=== PATIENT | male | born 1940 | race Caucasian/White ===

== ENCOUNTER 2017-11-14 18:40 | Observation (INO) | payer MEDICARE, OTHER ==
[2017-11-14] MEDS ORDERED: Ondansetron HCl/PF 4 MG/2 ML Vial ONE (19:31)
[2017-11-14 19:55] LABS: ALT (SGPT) 14 U/L (8-55); AST (SGOT) 20 U/L (5-34); Albumin 3.9 g/dL (3.4-4.8); Alkaline Phosphatase 48 U/L (40-150); Anion Gap 19 mmol/L (10-20); BUN (Urea Nitrogen) 27 mg/dL (8.4-25.7); Bilirubin, Total 0.9 mg/dL (0.2-1.2); CK (CPK) 270 U/L (30-200); Calc. Creatinine Clearance 0 mL/min (70-130); Calcium 9.1 mg/dL (7.8-10.44); Carbon Dioxide 23 mmol/L (23-31); Chloride 99 mmol/L (98-107); Estimated GFR-MDRD 43; Globulin 2.3 g/dL (2.4-3.5); Glucose 126 mg/dL (83-110); Lipase 8 U/L (8-78); Potassium 3.7 mmol/L (3.5-5.1); Protein, Total 6.2 g/dL (5.8-8.1); Sodium 137 mmol/L (136-145)
[2017-11-14 19:56] LABS: Band 47 % (5-11); Hemoglobin 14.7 g/dL (14.0-18.0); Lymphocytes 6 % (21-51); MDiff Complete? YES; Mean Corpuscular Hemoglobin 32.1 pg (27.0-31.0); Mean Corpuscular Volume 91.7 fl (80.0-94.0); Mean Platelet Volume 8.4 fL (7.4-10.4); Monocytes 7 % (0-10); Neutrophil 38 % (42-75); PLT Morphology Comment Appears Decreased; Platelet Count 131 thou/uL (130-400); RBC Distribution Width 11.1 % (11.5-14.5); Reactive Lymphocytes 2 % (0-10); Red Blood Cell (RBC) Count 4.58 mill/uL (4.70-6.10); Reflex for Review?? YES; White Blood Cell (WBC) Count 5.9 thou/uL (4.8-10.8)
[2017-11-14 19:58] LABS: CKMB 0.9 ng/mL (0-6.6); Troponin I Less than 0.010 ng/mL (< 0.028)
--- NOTE | 2017-11-14 20:39 | RAD ---
RADIOGRAPH CHEST 1 VIEW: HISTORY: 76-year-old male with nausea. FINDINGS: There are no air space densities, pulmonary edema, pneumothorax, or cardiomegaly. The lateral costop hrenic angles are sharp. IMPRESSION: No acute cardiopulmonary findings. shamir POS: SYBIL
[2017-11-14] MEDS ORDERED: metroNIDAZOLE 500 MG/100 ML BAG ONE (20:57)
--- NOTE | 2017-11-14 21:33 | CT ---
CT ABDOMEN NONCONTRAST CT PELVIS NONCONTRAST: (urolithiasis protocol) DATE: 11-14-17 TIME: 7:42 P.M. HISTORY: 76-year-old male with nausea, diarrhea, fever, and generalized malice. COMPARISON: 08-16-14 CT with contrast. TECHNIQUE: IV injection of iodinated contrast media: none Oral contrast media: none FINDINGS: Other than for urolithiasis, the lack of IV and oral contrast limits the evaluation. Pulmonary densities at the bases of bilateral lower lobes are somewhat worse than in the 2014 study. The tiny focal, less than 1 cm hypodense lesion in the left lobe of the liver is stable and therefore benign. Again noted are the multiple fluid-filled structures in the sinuses of bilateral kidneys. Th is appearance is unchanged, and either represents multiple parapelvic renal cysts or mild bilateral h ydronephrosis. Given the stability between the two studies, the former is slightly favored. There are no renal, ureteral, or bladder calculi. There is a new finding of a moderately large volume of liqui d stool in the sigmoid colon and especially in the rectum, distending the rectum. Again noted are the multiple diverticula in the sigmoid colon. Previously, there was focal moderate to severe diverticul itis involving the lower portions of the descending colon. Currently, there is mild fat stranding and mild mural thickening of the lower portion descending colon and the junction between the descending colon and sigmoid colon. No abdominal aortic aneurysm. No gross abnormality of the adrenals, pancreas , or spleen. No small bowel dilation. No ascites or pneumoperitoneum. The appendix is normal. IMPRESSION: 1. No urolithiasis. 2. Liquid stool in the colon: impending diarrhea. 3. Diverticulosis of sigmoid colon and lower descending colon. 4. Questionable mild acute diverticulitis at lower descending colon. 5. Bibasilar pulmonary opacities. See report of chest CTA later today. 6. Multiple bilateral parapelvic renal cysts vs mild bilateral hydronephrosis due to mild bilateral U PJ obstructions. The former is favored. Either an IVP (intravenous urogram) or CT with contrast wit h delayed scanning during the excretory phase, would provide definitive diagnosis. AVA Bateman POS: SYBIL
--- NOTE | 2017-11-14 22:29 | CT ---
CTA THORAX WITH CONTRAST: (Computed Tomographic Angiography, chest(noncoronary) with contrast material, and image postprocessin g) (PE protocol) Date: 11-14-17 HISTORY: 76-year-old male with dyspnea, nausea, and fever. TECHNIQUE: IV injection of iodinated contrast: Isovue 370 Scan acquisition timing attempted to coincide with iodinated contrast bolus reaching maximal density in pulmonary arteries. 3D MIP reconstructions. Comparison: No previous CTs of the chest. There is a prior CT of the abdomen of 08-16-14. FINDINGS: As demonstrated on the previous abdominal CT, there are plate-like densities at the bases of bilatera l lower lobes, consistent with either recurrent subsegmental atelectasis or pulmonary scarring. This is moderately worse on the current CT compared to the previous, with irregularly shaped transversely wide but craniocaudally narrow airspace densities or consolidations, with mild air bronchograms. Ther e is no pleural effusion or pneumothorax. No thoracic aortic aneurysm or dissection. No mediastinal o r hilar lymphadenopathy. Trachea and major bronchi are patent and clear. No cardiomegaly. No evidence of pulmonary thromboembolism. IMPRESSION: 1. No evidence of pulmonary thromboembolism. 2. Pulmonary densities at the basis of the bilateral lower lobes which are nonspecific. Uncertain whe ther entirely chronic or a combination of chronic and acute; uncertain whether atelectasis or mild pn eumonia. Atelectasis is slightly favored but follow up is recommended. shamir POS: SYBIL
[2017-11-14 23:10] LABS: Troponin I 0.019 ng/mL (< 0.028)
[2017-11-14 23:11] LABS: Lactic Acid 1.4 mmol/L (0.5-2.2)
[2017-11-14] MEDS ORDERED: Ondansetron HCl/PF 4 MG/2 ML Vial IVP PRN (23:28)
[2017-11-14] MEDS ORDERED: Ondansetron ODT 4 MG TAB SL PRN (23:28)
[2017-11-14] MEDS ORDERED: Acetaminophen 325 MG TAB PO PRN (23:28)
[2017-11-14] MEDS: Sodium Chloride 0.9% 1,000 ML IV SCH (23:56)
[2017-11-15 01:57] LABS: Troponin I 0.021 ng/mL (< 0.028)
[2017-11-15 02:53] VITALS: BMI 26.6
[2017-11-15] MEDS: Sodium Chloride 0.9% 1,000 ML IV SCH (04:58)
[2017-11-15 05:53] LABS: #Lymphocytes 0.6 thou/uL (1.20-3.40); #Monocytes 0.4 thou/uL (0.11-0.59); #Neutrophils 3.8 thou/uL (1.40-6.50); %Basophils 0.9 % (0.0-1.0); %Eosinophils 0.1 % (0.0-10.0); %Lymphocytes 11.7 % (21.0-51.0); %Monocytes 8.1 % (0.0-10.0); %Neutrophils 79.2 % (42.0-75.0); Hemoglobin 14.8 g/dL (14.0-18.0); Mean Corpuscular HGB CONC 33.2 g/dL (32.0-36.0); Mean Corpuscular Hemoglobin 32.1 pg (27.0-31.0); Mean Corpuscular Volume 96.6 fl (80.0-94.0); Mean Platelet Volume 7.4 fL (7.4-10.4); Platelet Count 132 thou/uL (130-400); RBC Distribution Width 11.6 % (11.5-14.5); Red Blood Cell (RBC) Count 4.62 mill/uL (4.70-6.10); White Blood Cell (WBC) Count 4.8 thou/uL (4.8-10.8)
[2017-11-15] MEDS ORDERED: metroNIDAZOLE 500 MG in Premix Bag 1 BAG IVPB SCH (06:00)
[2017-11-15 06:10] LABS: Anion Gap 12 mmol/L (10-20); BUN (Urea Nitrogen) 21 mg/dL (8.4-25.7); Calc. Creatinine Clearance 56 mL/min (70-130); Carbon Dioxide 26 mmol/L (23-31); Chloride 101 mmol/L (98-107); Estimated GFR-MDRD 47; Glucose 96 mg/dL (83-110); Potassium 3.6 mmol/L (3.5-5.1); Sodium 135 mmol/L (136-145)
[2017-11-15] MEDS: Enoxaparin Sodium 30 MG/0.3 ML SYRINGE SC SCH (07:54)
[2017-11-15] MEDS: Metamucil PACK PO SCH (07:55)
--- NOTE | 2017-11-15 08:15 | HP ---
PRIMARY CARE PHYSICIAN: None. CHIEF COMPLAINT: Diarrhea with fever. HISTORY OF PRESENT ILLNESS: This is a 76-year-old male with past medical history notable for hyperli pidemia and hypertension who presents with a chief complaint of diarrhea and fever over the last 2-3 days. The patient states that he was recently on a group trip to [place] and noted that approximat lucita 10 individuals out of the group of 30 also had similar symptoms. The patient states that his nila mmate for the trip 3 days had the same exact symptoms of diarrhea, fever, abdominal pain and the corrie ent himself had similar symptoms occur while on the flight back 3 days after his roommate started hav ing the same symptoms. At the time of my evaluation, the patient states his abdominal pain is significantly improved. He sa id he is still having intermittent diarrhea, but overall feels somewhat better. He still has no appe tite. Denies any nausea. REVIEW OF SYSTEMS: As per HPI. CONSTITUTIONAL: No significant weight loss or gain over the last 2-3 weeks, fevers as above subjecti ve at home, denies any chills. HEENT: Denies any new headaches, vision changes, lightheadedness. CARDIOVASCULAR: Denies any chest pressure or chest pain accompanying these episodes. RESPIRATORY: Denies any new shortness of breath, cough, sinus congestion or postnasal drip. GASTROINTESTINAL: Please see the discussion above. MUSCULOSKELETAL: Denies any myalgias or arthralgias. The remainder of review of systems otherwise negative. PAST MEDICAL HISTORY: As per HPI. 1. Hypertension. 2. Hyperlipidemia. 3. Diverticulosis. 4. History of "prostate surgery." HOME MEDICATIONS: Please see the EMR for full details. His list includes rosuvastatin 5 mg p.o. at bedtime, multivitamins 1 cap p.o. at bedtime, aspirin 81 mg p.o. at bedtime and amlodipine 5 mg p.o. at bedtime. ALLERGIES: NAPROXEN. FAMILY HISTORY: The patient denies any known family history of recurrent GI illness. SOCIAL HISTORY: Denies any alcohol, tobacco or illicit drug use. Acute sick contact as described ab ove in the HPI. The patient states he wishes to be full code. He does not designate a surrogate [facility] decision maker at this point in time if he is unable to make his own medical decisions. PHYSICAL EXAMINATION: VITAL SIGNS: Temperature 97.9, pulse of 104, respirations 20, satting 97% on room air, blood pressur e 131/69. GENERAL: The patient is awake, alert, appropriate, in no acute distress, lying in the hospital bed. HEENT: Slightly dry mucous membranes. Equal ocular motions are intact. Normocephalic, atraumatic. CARDIOVASCULAR: S1, S2. No murmurs, rubs or gallops. Pulses 2+ bilateral upper extremities, no pit ting pedal edema. RESPIRATORY: Reasonable air movement. No wheezes, rales or rhonchi. Lungs are clear to auscultatio n bilaterally. ABDOMEN: Positive bowel sounds, soft, slightly tender to palpation throughout. MUSCULOSKELETAL: Moving all 4 extremities. Independently able to self reposition in the bed without difficulty or assistance. LABORATORY DATA AND IMAGING: WBC 5.9, hemoglobin 14.7, hematocrit 42.0, platelets 131. D-dimer 0.7 8, sodium 137, potassium 3.7, chloride 99, bicarbonate 23, BUN 27, creatinine 1.59, glucose 126, lact ic acid 2.6. Subsequent lactic acid 1.4, calcium 9.1, total bilirubin 0.9, AST 20, ALT 14, alkaline phosphatase 48. Creatinine kinase 270. Troponin less than 0.01 followed by 0.019 followed by 0.021. BNP 77.5, total protein 6.2, albumin 3.9, lipase 8. 11/14/20173 - Abdomen and pelvis CT results. Impression: "No ureterolithiasis with no evidence of h igh grade obstructive uropathy. Liquid stool in the colon, impending diarrhea. Diverticulosis of si gmoid colon and low descending colon. Mild, acute diverticulitis low descending colon". 11/14/2017 - Chest and thorax CTA. Impression: "No evidence of pulmonary thromboembolism. Pulmona ry densities at the bases of the lower lobes which are nonspecific, uncertain whether it is either ch ronic or a combination acute, or whether atelectasis or mild pneumonia. Atelectasis is slightly favo red, but followup was recommended". 11/14/2017 - Chest x-ray- Impression: No acute cardiopulmonary findings. ASSESSMENT AND PLAN: This is a 76-year-old male who presents with a chief complaint of diarrhea and fever. 1. Diarrhea and fever with given history as per above. Seems to suggest an infectious etiology. Th e patient is currently placed on empiric ciprofloxacin and metronidazole. Stool samples have been se nt for culture. The patient is placed on enteric precautions. The patient is currently on IV fluid resuscitation and close monitoring of his symptoms. 2. History of hypertension, stable. 3. History of hyperlipidemia, stable. 4. Diet: N.p.o. The patient is allowed to have a clear liquid diet, advance as tolerated once his abdominal pain is resolved or tolerable. 5. Activity: Out of bed as tolerated. 6. Deep venous thrombosis prophylaxis. Lovenox. Thank you for asking me care for the patient. Admit the patient to observation status. With questio ns or concerns, please contact me at [facility].
[2017-11-15] MEDS: Famotidine 40 MG/4 ML VIAL SLOW IVP SCH (11:40)
[2017-11-15] MEDS ORDERED: Acetaminophen 500 MG TAB PO PRN (13:56)
--- NOTE | 2017-11-15 18:23 | PDOC.PN ---
- Subjective Encounter Start Date: 11/15/17 Encounter Start Time: 18:00 Subjective: f/u for gastroenteritis, CHRISTINE, dehydration. Overall feels better. Still -: with fever and diarrhea. - Objective Resuscitation Status: Resuscitation Status FULL:Full Resuscitation MAR Reviewed: Yes Vital Signs & Weight: Vital Signs (12 hours) Temp Pulse Resp BP Pulse Ox 11/15/17 14:42 100.1 F H 92 15 113/64 91 L 11/15/17 11:30 99.6 F 88 16 130/69 90 L 11/15/17 07:30 100.7 F H 101 H 18 11/15/17 07:18 100.7 F H 101 H 18 134/69 Weight Weight 196 lb 12.8 oz I&O: 11/14/17 11/15/17 11/16/17 06:59 06:59 06:59 Intake Total 2370 Balance 2370 Result Diagrams: 11/15/17 04:45 11/15/17 04:45 Additional Labs: Microbiology 11/14/17 23:50 Stool - Liquid Campylobacter Antigen Assay - Final 11/14/17 23:50 Stool - Liquid Shiga Toxin Test - Final Laboratory Tests 11/14/17 11/14/17 11/14/17 19:25 19:25 19:25 Neutrophils % Neutrophils % (Manual) 38 L Band Neuts % (Manual) 47 H Creatinine 1.59 H Lactic Acid 2.6 H 11/14/17 11/15/17 22:35 04:45 Neutrophils % 79.2 H Neutrophils % (Manual) Band Neuts % (Manual) Creatinine Lactic Acid 1.4 Radiology Reviewed by me: Yes (CT abd/pel - non-specific diverticulosis, renal cysts) EKG Reviewed by me: Yes (Tele - Sinus tachycardia in low 100's) Phys Exam - Physical Examination Constitutional: NAD HEENT: PERRLA, oral pharynx no lesions Neck: no JVD, supple Respiratory: no wheezing Cardiovascular: RRR Gastrointestinal: soft, non-tender, no distention, positive bowel sounds Musculoskeletal: no edema, pulses present Neurological: normal sensation, moves all 4 limbs Psychiatric: A&O x 3 Skin: normal turgor, cap refill <2 seconds Dx/Plan (1) Gastroenteritis Code(s): K52.9 - NONINFECTIVE GASTROENTERITIS AND COLITIS, UNSPECIFIED Status : Acute Comment: Likely Traveler's diarrhea, continue Cipro and Flagyl, add Zithromax 500mg po daily, continue IVF's, antiemetics prn (2) CHRISTINE (acute kidney injury) Code(s): N17.9 - ACUTE KIDNEY FAILURE, UNSPECIFIED Status: Acute Comment: Improved, continue IVF's, avoid nephrotoxic meds (3) Dehydration Code(s): E86.0 - DEHYDRATION Status: Acute Comment: Improved, continue IVF's , encourage increased po free H2O (4) Fever Code(s): R50.9 - FEVER, UNSPECIFIED Status: Acute Comment: Persistent, see # 1 (5) HTN (hypertension) Code(s): I10 - ESSENTIAL (PRIMARY) HYPERTENSION Status: Chronic Qualifiers: Hypertension type: essential hypertension Qualified Code(s): I10 - Essential (primary) hypertension Comment: Resume home Norvasc, monitor serially - Plan plan discussed w/ family, continue antibiotics, DVT proph w/SCDs Stable overall -: Continue Cipro and Flagyl IV -: Add Zithromax 500mg daily for Traveler's diarrhea -: Antiemetics prn -: AM lab: BMP, CBC * Final stool studies pending * Likely home in am
[2017-11-15] MEDS ORDERED: Azithromycin 250 MG TAB PO SCH (18:45)
[2017-11-15] MEDS ORDERED: Rosuvastatin 5 MG TAB PO SCH (21:00)
[2017-11-15] MEDS ORDERED: Aspirin 81 mg Enteric Coated Tablet PO SCH (21:00)
[2017-11-15] MEDS ORDERED: Amlodipine 5 MG TAB PO SCH (21:00)
[2017-11-16 04:15] VITALS: TEMP 99.3
[2017-11-16 04:56] LABS: Anion Gap 7 mmol/L (10-20); BUN (Urea Nitrogen) 18 mg/dL (8.4-25.7); Calc. Creatinine Clearance 61 mL/min (70-130); Calcium 8.4 mg/dL (7.8-10.44); Carbon Dioxide 31 mmol/L (23-31); Chloride 106 mmol/L (98-107); Estimated GFR-MDRD 52; Glucose 92 mg/dL (83-110); Potassium 3.7 mmol/L (3.5-5.1); Sodium 140 mmol/L (136-145)
[2017-11-16 05:00] LABS: #Lymphocytes 0.4 thou/uL (1.20-3.40); #Monocytes 0.3 thou/uL (0.11-0.59); #Neutrophils 2.6 thou/uL (1.40-6.50); %Basophils 0.3 % (0.0-1.0); %Eosinophils 0.5 % (0.0-10.0); %Lymphocytes 12.6 % (21.0-51.0); %Monocytes 7.7 % (0.0-10.0); %Neutrophils 78.8 % (42.0-75.0); Hemoglobin 14.1 g/dL (14.0-18.0); Mean Corpuscular HGB CONC 34.3 g/dL (32.0-36.0); Mean Corpuscular Hemoglobin 33.9 pg (27.0-31.0); Mean Platelet Volume 7.5 fL (7.4-10.4); Platelet Count 112 thou/uL (130-400); RBC Distribution Width 11.7 % (11.5-14.5); Red Blood Cell (RBC) Count 4.14 mill/uL (4.70-6.10); White Blood Cell (WBC) Count 3.3 thou/uL (4.8-10.8)
[2017-11-16 08:21] VITALS: BP 128/75
[2017-11-16] MEDS: Enoxaparin Sodium 30 MG/0.3 ML SYRINGE SC SCH (08:39)
[2017-11-16] MEDS ORDERED: guaiFENesin ER 600 MG TAB PO SCH (09:00)
[2017-11-16] MEDS ORDERED: Azithromycin 250 MG TAB PO SCH (09:00)
[2017-11-16] MEDS: Famotidine 40 MG/4 ML VIAL SLOW IVP SCH (09:16)
[2017-11-16] MEDS: Metamucil PACK PO SCH (09:16)
--- NOTE | 2017-11-16 11:46 | DIS ---
DATE OF ADMISSION: 11/14/2017 DATE OF DISCHARGE: 11/16/2017 DISCHARGE DIAGNOSES: 1. Gastroenteritis/traveler's diarrhea, improved. 2. Dehydration, resolved. 3. Acute kidney injury secondarily to #1, improved. 4. Question of chronic kidney disease stage 3. 5. Lactic acidosis, mild, resolved. 6. Hypertension, stable. CONSULTATIONS: None. PERTINENT LAB AND X-RAY FINDINGS: Creatinine ranged between 1.33 to 1.59 with estimated GFR ranging between 43 to 52. Lactic acid level ranged between 1.4 to 2.6. LFTs within normal limits. Lipase 8 . CBC showed a white blood cell count ranging between 3.3 to 5.9, hemoglobin 14. Stool culture date d 11/14/2017 showed moderate normal enteric may. Campylobacter antigen negative. Shigella toxin 1 and 2 negative 11/14/2017. C. difficile antigen and toxin dated 11/15/[address] of the abd omen and pelvis dated 11/14/2017 showed diverticulosis of the sigmoid and lower descending colon. Qu estion of mild acute diverticulitis of the lower descending colon. Bibasilar atelectasis of the lowe r lung msua. Bilateral renal cysts. Portable chest x-ray dated 11/14/2017 showed no acute cardiop ulmonary process. CT angiogram of the chest dated 11/14/2017 showed no evidence for pulmonary embolu s. HOSPITAL COURSE: The patient was placed in observation status after initially presenting with diarrh ea, fever, and gastroenteritis after a recent international trip. The patient was placed on empiric IV ciprofloxacin and Flagyl with stool studies essentially unrevealing. The patient was given IV flu ids after acute kidney injury was noted with elevated creatinine above baseline values. The patient was given antiemetics, antipyretics and monitored for approximately 48 hours. The patient's overall diarrhea had resolved by the time of discharge and the patient was symptomatically improved, able to tolerate regular oral intake. Overall, the patient remained clinically stable through the hospital [facility] and on the day of discharge is noted with stable vital signs. Lungs are clear to auscultation bilaterally with cardiovascular exam showing normal S1, S2. Abdominal exam is unremarkable. The pat ient ready for discharge 11/16/2017. DISCHARGE MEDICATIONS: 1. Flagyl 250 mg p.o. t.i.d. x5 days. 2. Zithromax 500 mg p.o. daily x5 days. 3. Norvasc 5 mg p.o. at bedtime. 4. Enteric-coated aspirin 81 mg p.o. at bedtime. 5. Multivitamin 1 tablet p.o. daily. 6. Crestor 5 mg p.o. at bedtime. 7. Coenzyme Q10 of 100 mg p.o. at bedtime. FOLLOWUP: The patient may follow up with his primary care provider, Dr. Chaka Jenkins within 7 days o f discharge. CONDITION ON DISCHARGE: Stable. ACTIVITY: Ad álvaro. DIET: Regular. CODE STATUS: Full. DISPOSITION: Home on 11/16/2017.
[2017-11-18 23:09] LABS: Norovirus GI Negative (Negative); Norovirus GII Negative (Negative)
== END 2017-11-16 10:40 | disposition home or self-care (01) ==
LOC: SCSER 18:40 → 2SW 22:16
PROVIDERS: ADMIT Internal Medicine Infectious Disease; ATTEND Internal Medicine Infectious Disease
DX: A09 Infectious gastroenteritis and colitis, unspecified (principal); E86.0 Dehydration; N17.9 Acute kidney failure, unspecified; E87.2 Acidosis; I10 Essential (primary) hypertension; E78.5 Hyperlipidemia, unspecified; Z79.82 Long term (current) use of aspirin; Z79.899 Other long term (current) drug therapy; Z88.6 Allergy status to analgesic agent; Z98.890 Other specified postprocedural states
CPT/HCPCS: 71045; 71275; 74176; 80048 ×2; 80053; 82550; 82553; 83605; 83690; 83880; 84484 ×3; 85025 ×3; 85379; 87045; 87046; 87077; 87324; 87449 ×2; 87798 ×2; 87899 ×2; 93005; 96361 ×2; 96365; 96366; 96367 ×2; 96372 ×2; 96375 ×2; 99285; G0378; 36415; 85060; 87186; J0744; J1650; J1956; J2405; Q0162

== ENCOUNTER 2020-12-25 05:59 | Day surgery (SDC) | payer MEDICARE ==
[2020-12-24 12:31] VITALS: BMI 26.9
[2020-12-25] MEDS ORDERED: Acetaminophen 500 MG TAB ONE (06:12)
[2020-12-25] MEDS ORDERED: Ketorolac Tromethamine 30 MG/ML VIAL ONE (06:13)
[2020-12-25] MEDS ORDERED: Fentanyl 100 MCG/2 ML VIAL ONE (06:26)
[2020-12-25] MEDS ORDERED: Bupivacaine 0.25% HCL 30 ML VIAL ONE (06:35)
[2020-12-25] MEDS ORDERED: Lidocaine 1% w/Epinephrine 1:100K 20 ML VIAL ONE (06:35)
[2020-12-25] MEDS ORDERED: PHENYLEPHRINE-NS 100 MCG/ML 10 ML SYRINGE ONE (07:34)
[2020-12-25] MEDS ORDERED: Ondansetron PF 4 MG/2 ML Vial ONE (07:34)
[2020-12-25] MEDS ORDERED: Glycopyrrolate 0.2 MG/ML 5 ML SYRINGE ONE (07:34)
[2020-12-25] MEDS ORDERED: Rocuronium Bromide 10 MG/ML (10ML VIAL) ONE (07:34)
[2020-12-25] MEDS ORDERED: Dexamethasone 20 MG/5 ML VIAL ONE (07:34)
[2020-12-25] MEDS ORDERED: PROPOFOL 200 MG/20 ML VIAL ONE (07:34)
== END 2020-12-25 11:30 | disposition home or self-care (01) ==
LOC: SDC 05:59
PROVIDERS: ATTEND Specialist
PROC: 0YU54JZ Supplement Right Inguinal Region with Synthetic Substitute, Percutaneous Endoscopic Approach (ICD-10-PCS; principal; 2020-12-25)
DX: K40.90 Unilateral inguinal hernia, without obstruction or gangrene, not specified as recurrent (principal); K42.9 Umbilical hernia without obstruction or gangrene; I10 Essential (primary) hypertension; E78.5 Hyperlipidemia, unspecified; Z79.82 Long term (current) use of aspirin; Z79.899 Other long term (current) drug therapy; Z88.6 Allergy status to analgesic agent
CPT/HCPCS: C1781; J0690; J1100; J1885; J2405; J2704; J3010; S0020